=== PATIENT | male | born 1990 | race Caucasian/White ===

== ENCOUNTER 2017-01-19 22:16 | Emergency (ER) | payer OTHER ==
[~2017-01-19] VITALS: Ht 177.8 cm; Wt 91.0 kg
[~2017-01-19 22:16] MED LIST: GUAI-637 PO; IBUP-1542 PO; IBUP800T25 PO; NAPR-260 PO; TRAM50TA2 PO
[2017-01-19 22:21] VITALS: Ht 177.8 cm; Wt 91.0 kg
--- NOTE | 2017-01-19 23:28 | ERD ---
ER Documentation Chief Complaint Date/Time DATE: 01/19/17 TIME: 23:24 Chief Complaint cough x 3days went to er earlier was discharged and given cough meds HPI 26-year-old male here in emergency department for complaints of cough for 3 days , patient was seen A different emergency department this morning, was given Tessalon Perle and albuterol which didn't help for his cough. Patient states that he is coughing much worse tonight. Dry cough, and is on and off wheezing at times. Patient also has been having on and off fever. Patient denies any chest pain or palpitations. Patient denies any irregular heartbeat. Patient denies any dizziness. ROS All systems reviewed and are negative except as per history of present illness. Medications Home Meds Active Scripts Guaifenesin-Codeine Phosphate* (Guaifenesin* AC Cough Syrup) 473 Ml Liquid, 10 ML PO Q4H Y for COUGH, #60 ML Prov:BARBARA PAK NP 01/20/17 Azithromycin* (Zithromax*) 250 Mg Tablet, 250 MG PO .JefersonPACK DIRECTED, #6 TAB TAKE 500 MG (2 TABS) THE FIRST DAY THEN 250 MG (1 TAB) DAYS 2-5 Prov:BARBARA PAK NP 01/20/17 Naproxen* (Naprosyn*) 500 Mg Tablet, 500 MG PO BID Y for PAIN AND/OR INFLAMMATION, #30 TAB Prov:GARLAND ANTOINE PA-C 07/23/16 Guaifenesin* (Robitussin*) 100 Mg/5 Ml Syrup, 200 MG PO Q4H Y for COUGH for 10 Days, ML Prov:DELIA UMANA NP 04/21/16 Ibuprofen* (Motrin*) 800 Mg Tab, 800 MG PO Q6, #30 TAB Prov:DELIA UMANA NP 04/21/16 Tramadol HCl (Tramadol HCl) 50 Mg Tablet, 50 MG PO Q4 Y for PAIN, #20 TAB Prov:JAYA PETERSON MD 10/08/15 Ibuprofen* (Motrin*) 600 Mg Tab, 600 MG PO Q6, #20 TAB Prov:JAYA PETERSON MD 10/08/15 Ibuprofen* (Motrin*) 800 Mg Tab, 800 MG PO Q6H Y for PAIN AND OR ELEVATED TEMP, #30 TAB Prov:MORENO BANSAL DERMATOLOGY PHYSICIAN ASSISTANT 05/09/15 Allergies Allergies: Coded Allergies: No Known Allergy (Unverified , 01/05/12) PMhx/Soc History of Surgery: Yes (appendectomy) Anesthesia Reaction: No Hx Neurological Disorder: No Hx Respiratory Disorders: No Hx Cardiac Disorders: No Hx Psychiatric Problems: No Hx Miscellaneous Medical Probl: Yes (diabetes melitus) Hx Alcohol Use: No Hx Substance Use: No Hx Tobacco Use: No Smoking Status: Never smoker FmHx Family History: No coronary disease, No diabetes, No other Physical Exam Vitals Vital Signs Date Time Temp Pulse Resp B/P Pulse Ox O2 Delivery O2 Flow Rate FiO2 01/20/17 00:54 98.1 105 16 129/77 96 Room Air 01/19/17 22:21 99.0 106 20 159/89 100 Physical Exam GENERAL: The patient is well developed and appropriate for usual state of health, in no apparent distress. CHEST: Clear to auscultation bilaterally. There are no rales, wheezes or rhonchi. HEART: Regular rate and rhythm. No murmurs, clicks, rubs or gallops. No S3 or S4. ABDOMEN: Soft, nontender and nondistended. Good bowel sounds. No rebound or guarding. No gross peritonitis. No gross organomegaly or masses. No Dubose sign or McBurney point tenderness. BACK: No midline or flank tenderness. EXTREMITIES: Equal pulses bilaterally. There is no peripheral clubbing, cyanosis or edema. No focal swelling or erythema. Full range of motion. Grossly neurovascularly intact. NEURO: Alert and oriented. Cranial nerves 2-12 intact. Motor strength in all 4 extremities with 5/5 strength. Sensation grossly intact. Normal speech and gait. SKIN: There is no apparent rash or petechia. The skin is warm and dry. HEMATOLOGIC AND LYMPHATIC: There is no evidence of excessive bruising or lymphedema. No gross cervical, axillary, or inguinal lymphadenopathy. Results 24 hrs Current Medications Medications (Trade) Dose Ordered Sig/Aylin Route PRN Reason Start Time Stop Time Status Last Admin Dose Admin Ibuprofen (Motrin) 600 mg ONCE ONCE PO 01/19/17 23:30 01/19/17 23:31 DC 01/19/17 23:17 Patient was given medicines for fever control here in the emergency department. After treatment, patient temperature improved and lower. Patient appears well and is hemodynamically stable. PROCEDURE: XR Chest. CLINICAL INDICATION: Cough. TECHNIQUE: AP view of the chest was obtained. COMPARISON: None available FINDINGS: The cardiomediastinal silhouette is within normal limits. The lungs are clear. No signs of pleural fluid or pneumothorax are seen. The osseous structures and soft tissues are unremarkable. IMPRESSION: 1. No evidence for active cardiopulmonary disease. RPTAT: HGAS .Marco Lee MD, MD Date Time Electronically viewed and signed by .Marco Lee MD, MD on 01/19/2017 23: 52 .S/ CC: BARBARA PAK DERMATOLOGY PHYSICIAN ASSISTANT Procedures/MDM Medical Decision Making: Patient symptoms are most likely consistent with acute bronchitis, back pain is atypical infection, considering patient is diabetic will treat with antibiotics. There is low suspicion for Pneumonia at this time since patients lungs sounds are clear, patient O2 saturation is normal and patient doesnt show any respiratory distress. Patients chest xray doesnt show infiltrates or any other cardiopulmonary emergencies at this time. There is low suspicion for other cardiopulmonary emergencies at this time such as CHF, Pulmonary Embolism, Pneumothorax, Aortic Aneurysm or any other cardiopulmonary emergencies at this time. There is low suspicion for sepsis. Patient appears well and is hemodynamically stable. Fever is controlled with medicines. Disposition: Home. Condition: Stable Prescriptions: Azithromycin, guaifenesin with codeine Instructions: Patient is advised to take medications as prescribed. Patient is advised to rest. Patient advised to increase fluid intake, do humidifier at home and if possible, do salt water gargles. Patient is advised that if symptoms are worse, shortness of breath, uncontrolled fever, stridor, vomiting, worst signs and symptoms to return to emergency department immediately. Otherwise, patient is advised to follow up with primary doctor in 5-7 days. Departure Diagnosis: Primary Impression: Acute bronchitis Bronchitis organism: unspecified organism Qualified Code: J20.9 - Acute bronchitis, unspecified organism Condition: Stable Patient Instructions: Bronchitis, Antiobiotic Treatment (Adult) Additional Instructions: Patient is advised to take medications as prescribed. Patient is advised to rest. Patient advised to increase fluid intake, do humidifier at home and if possible, do salt water gargles. Patient is advised that if symptoms are worse, shortness of breath, uncontrolled fever, stridor, vomiting, worst signs and symptoms to return to emergency department immediately. Otherwise, patient is advised to follow up with primary doctor in 5-7 days. BARBARA PAK. JACKELYN Jan 19, 2017 23:28
[2017-01-19] MEDS ORDERED: IBUPROFEN 600 MG TAB PO ONE (23:30)
--- NOTE | 2017-01-19 23:52 | RADRPT ---
PROCEDURE: XR Chest. CLINICAL INDICATION: Cough. TECHNIQUE: AP view of the chest was obtained. COMPARISON: None available FINDINGS: The cardiomediastinal silhouette is within normal limits. The lungs are clear. No signs of pleural f luid or pneumothorax are seen. The osseous structures and soft tissues are unremarkable. IMPRESSION: 1. No evidence for active cardiopulmonary disease. RPTAT: HGAS .Marco Lee MD, MD Date Time Electronically viewed and signed by .Marco Lee MD, on 01/19/2017 23:52 .S/
[2017-01-20] MEDS ORDERED: AZIT250T94 PO (00:10)
[2017-01-20] MEDS ORDERED: GUAI473L22 PO (00:10)
[2017-01-20 00:54] VITALS: BP 129/77; PULSE 105; RESP 16; TEMP 98.1
== END 2017-01-20 00:55 | disposition home or self-care (01) ==
LOC: FTE 22:16
DX: J20.9 Acute bronchitis, unspecified (principal); E11.9 Type 2 diabetes mellitus without complications
CPT/HCPCS: 71010; Z7610

== ENCOUNTER 2017-11-10 20:37 | Emergency (ER) | END 2017-11-11 00:25 | disposition home or self-care (01) ==

== ENCOUNTER 2018-06-27 06:49 | Emergency (ER) | END 2018-06-27 08:41 | disposition home or self-care (01) ==

== ENCOUNTER 2018-10-17 16:16 | Emergency (ER) | payer OTHER ==
[~2018-10-17] VITALS: Ht 175.3 cm; Wt 98.1 kg
[~2018-10-17 16:16] MED LIST changes: +AZIT250T PO; +CEPH-443 PO; +GUAI473L22 PO; -IBUP800T25 PO; +IBUP800T48 PO; -NAPR-260 PO; +NAPR-985 PO
[2018-10-17 16:50] VITALS: Ht 175.3 cm; Wt 98.1 kg
[2018-10-17] MEDS ORDERED: D-ME473S2 PO (20:50)
[2018-10-17] MEDS ORDERED: AZIT250T PO (20:50)
[2018-10-17] MEDS ORDERED: IBUP-1542 PO (20:50)
--- NOTE | 2018-10-17 20:52 | ERD ---
ER Documentation Chief Complaint Chief Complaint cough , sore throat , chest congestion x 1 week HPI 28-year-old male presents with productive cough for last week. May have a tactile fevers but no measured temperature. Also has sore throat. Here with partner with similar symptoms. Denies any vomiting, abdominal pain, chest pain. ROS All systems reviewed and are negative except as per history of present illness. Medications Home Meds Active Scripts Ibuprofen* (Motrin*) 600 Mg Tab, 600 MG PO Q6, #15 TAB Prov:JAYA PETERSON MD 10/17/18 Dextromethorphan Hb-Promethazine Hcl* (Promethazine DM* Syrup) 473 Ml Syrup, 5 ML PO Q6 PRN for COUGH for 5 Days, ML Prov:JAYA PETERSON MD 10/17/18 Azithromycin* (Zithromax*) 250 Mg Tablet, 250 MG PO .ZPACK DIRECTED, #6 TAB TAKE 500 MG (2 TABS) THE FIRST DAY THEN 250 MG (1 TAB) DAYS 2-5 Prov:JAYA PETERSON MD 10/17/18 Ibuprofen* (Motrin*) 600 Mg Tab, 600 MG PO Q6H PRN for PAIN AND OR ELEVATED TEMP, #30 TAB Prov:MALVIN HOLDENC 06/27/18 Cephalexin* (Keflex*) 500 Mg Capsule, 500 MG PO BID for 7 Days, CAP Prov:LINDY CAMACHO 11/10/17 Guaifenesin-Codeine Phosphate* (Guaifenesin* AC Cough Syrup) 473 Ml Liquid, 10 ML PO Q4H PRN for COUGH, #60 ML Prov:BARBARA PAK NP 01/20/17 Azithromycin* (Zithromax*) 250 Mg Tablet, 250 MG PO .ZPACK DIRECTED, #6 TAB TAKE 500 MG (2 TABS) THE FIRST DAY THEN 250 MG (1 TAB) DAYS 2-5 Prov:BARBARA PAK NP 01/20/17 Naproxen* (Naprosyn*) 500 Mg Tablet, 500 MG PO BID PRN for PAIN AND/OR INFLAMMAT ION, #30 TAB Prov:GARLAND ANTOINE PAJamesC 07/23/16 Guaifenesin* (Robitussin*) 100 Mg/5 Ml Syrup, 200 MG PO Q4H PRN for COUGH for 10 Days, ML Prov:DELIA UMANA NP 04/21/16 Ibuprofen* (Motrin*) 800 Mg Tab, 800 MG PO Q6, #30 TAB Prov:DELIA UMANA NP 04/21/16 Tramadol HCl (Tramadol HCl) 50 Mg Tablet, 50 MG PO Q4 PRN for PAIN, #20 TAB Prov:JAYA PETERSON MD 10/08/15 Ibuprofen* (Motrin*) 600 Mg Tab, 600 MG PO Q6, #20 TAB Prov:JAYA PETERSON MD 10/08/15 Ibuprofen* (Motrin*) 800 Mg Tab, 800 MG PO Q6H PRN for PAIN AND OR ELEVATED TEMP, #30 TAB Prov:MORENO BANSAL NP 05/09/15 Allergies Allergies: Coded Allergies: No Known Allergy (Unverified , 06/27/18) PMhx/Soc History of Surgery: Yes (appendectomy) Anesthesia Reaction: No Hx Neurological Disorder: No Hx Respiratory Disorders: No Hx Cardiac Disorders: No Hx Psychiatric Problems: No Hx Miscellaneous Medical Probl: Yes (DM) Hx Alcohol Use: No Hx Substance Use: No Hx Tobacco Use: No FmHx Family History: No diabetes, No coronary disease, No other Physical Exam Vitals Vital Signs Date Temp Pulse Resp B/P (MAP) Pulse Ox O2 O2 Flow FiO2 Time Delivery Rate 10/17/18 97.8 99 16 145/99 96 Room Air 21:33 (114) 10/17/18 98.1 107 18 146/70 97 16:50 (95) Physical Exam Const: No acute distress Head: Atraumatic Eyes: Normal Conjunctiva ENT: Normal External Ears, Nose and Mouth. TMs and oropharynx normal. Neck: Full range of motion. No meningismus. Resp: Clear to auscultation bilaterally. Coarse cough. No rales, wheezing or retractions. Cardio: Regular rate and rhythm, no murmurs Abd: Soft, non tender, non distended. Normal bowel sounds Skin: No petechiae or rashes Back: No midline or flank tenderness Ext: No cyanosis, or edema Neur: Awake and alert Psych: Normal Mood and Affect Procedures/MDM Patient presents with URI symptoms and productive cough for last week without signs of hypoxemia, respiratory stress, signs of pneumonia on exam. We will treat empirically with Zithromax, promethazine, ibuprofen, primary care follow- up and return precautions. The patient was stable with no new complaints during the ER course. Clinically, there is no current evidence to suggest meningitis, sepsis, acute abdomen, pneumonia, stroke, acute coronary syndrome, pulmonary embolism, aortic dissection or any other emergent condition appearing to require further evaluation or hospitalization. Patient counseled regarding my diagnostic impression and care plan. Prior to discharge all questions answered. Pt agrees with treatment plan and understands strict return precautions. Pt is instructed to follow up with primary care provider within 24-48 hours. Precautionary instructions provided including instructions to return to the ER if not improving or for any worsening or changing symptoms or concerns. Departure Diagnosis: Primary Impression: Upper respiratory infection URI type: unspecified URI Qualified Codes: J06.9 - Acute upper respiratory infection, unspecified Condition: Stable Patient Instructions: Bronchitis, Antiobiotic Treatment (Adult) Referrals: [facility] (PCP) Additional Instructions: Recheck for new or worsening symptoms with primary care doctor. JAYA PETERSON MD Oct 17, 2018 20:52
[2018-10-17 21:33] VITALS: BP 145/99; PULSE 99; RESP 16
== END 2018-10-17 21:33 | disposition home or self-care (01) ==
LOC: FTE 16:16
DX: J06.9 Acute upper respiratory infection, unspecified (principal); E11.9 Type 2 diabetes mellitus without complications
CPT/HCPCS: 99283